=== PATIENT | female | born 1955 | race Caucasian/White ===

== ENCOUNTER 2017-02-17 08:00 | Observation (INO) | payer MEDICARE, OTHER ==
[2017-02-16 09:49] VITALS: BMI 23.0
[2017-02-17 08:42] LABS: Hematocrit 47.4 % (36.0-47.0); Mean Platelet Volume 6.4 fL (7.4-10.4); Red Blood Cell (RBC) Count 5.17 mill/uL (4.20-5.40); White Blood Cell (WBC) Count 5.5 thou/uL (4.8-10.8)
[2017-02-17 08:58] LABS: PTT 25.8 SEC (22.9-36.1)
[2017-02-17 09:15] LABS: Anion Gap 14 mmol/L (10-20); BUN (Urea Nitrogen) 21 mg/dL (9.8-20.1); Calc. Creatinine Clearance 71 mL/min (70-130); Carbon Dioxide 22 mmol/L (23-31); Chloride 104 mmol/L (98-107); Estimated GFR-MDRD 75
[2017-02-17] MEDS ORDERED: Propofol 1,000 MG/100 ML VIAL IV ONE (09:40)
[2017-02-17] MEDS ORDERED: Midazolam HCl 2 mg/2 ml Vial ONE (09:43)
[2017-02-17] MEDS ORDERED: Meperidine HCl/PF 25 MG/ML VIAL ONE ×2 (09:43→11:14)
[2017-02-17] MEDS ORDERED: Propofol 200 MG/20 ML VIAL ONE (09:51)
[2017-02-17] MEDS ORDERED: Isoproterenol 0.2 MG/1 ML AMP ONE (10:36)
[2017-02-17] MEDS ORDERED: Heparin 10,000 UNITS/1 ML VIAL ONE ×3 (10:57→10:58)
[2017-02-17] MEDS ORDERED: Heparin 25,000 units/D5W 500 ML ONE (11:14)
[2017-02-17] MEDS ORDERED: Diprivan 0 ML ONE (11:58)
[2017-02-17] MEDS ORDERED: Propofol 500 MG/50 ML VIAL ONE (11:58)
[2017-02-17] MEDS ORDERED: Protamine Sulfate 50 MG/5 ML VIAL ONE (13:00)
[2017-02-17] MEDS ORDERED: Acetaminophen 325 MG TAB PO PRN (14:31)
[2017-02-17] MEDS ORDERED: Mag-Al 1200 mg/1200 mg/30 ML UDCUP PO PRN (14:31)
[2017-02-17] MEDS ORDERED: Bisacodyl 5 MG TAB PO PRN (14:31)
[2017-02-17] MEDS ORDERED: Bisacodyl 10 MG SUPP PR PRN (14:31)
[2017-02-17] MEDS ORDERED: Temazepam 15 MG CAP PO PRN (14:31)
[2017-02-17] MEDS ORDERED: Nitroglycerin 0.4 MG TAB (25 Tab Bottle) SL PRN (14:31)
[2017-02-17] MEDS ORDERED: Ondansetron HCl/PF 4 MG/2 ML Vial IVP PRN (14:31)
[2017-02-17] MEDS ORDERED: diphenhydrAMINE HCl 25 MG CAP PO PRN (14:31)
[2017-02-17] MEDS ORDERED: Silver Sulfadiazine 1% Cream 50 GM JAR TOP PRN (14:31)
[2017-02-17] MEDS ORDERED: traMADol HCl 50 MG TAB PO PRN (14:31)
[2017-02-17] MEDS ORDERED: HYDROcodone/Acetaminophen 5/325 mg Tablet PO PRN (19:08)
[2017-02-17] MEDS ORDERED: Atorvastatin Calcium 10 MG TAB PO SCH (21:00)
--- NOTE | 2017-02-18 00:48 | CCL ---
DATE OF PROCEDURE: 02/17/2017 ELECTROPHYSIOLOGY STUDY AND RADIOFREQUENCY ABLATION REPORT REFERRING PHYSICIAN: Nancy Leija M.D. Mrs. Mercado is a 61-year-old woman with history of bone cancer in the right hip. She developed rapid tachyarrhythmia episodes at 130 beats per minute on a Holter monitor in 01/2017. EKG at baseline suggestive of pre-excitation. She is here for EP study and ablation procedure. PROCEDURE: The patient has received deep sedation by anesthesia specialist. Both femoral areas were prepped, draped, and anesthetized using subcutaneous lidocaine. The left femoral vein was accessed under ultrasound guidance, and a 5-, 6-, and 8-Bruneian sheaths were introduced. Through these, an octapolar catheter was advanced to the RV, His bundle, and right atrial position. A decapolar catheter was advanced to a CS position. Comprehensive EP study was performed from these locations with pacing and mapping and recording in each locale was performed. Following findings were found. The baseline cycle length was 658 milliseconds, TN 138, QRS was 84, QT 354, AH 69, HV initially was about 8-28. Intermittent pre-excitation was noted on some beats. The AV Wenckebach cycle length was 280 milliseconds, retrograde Wenckebach cycle length was 300 milliseconds. Of note, concentric retrograde activation was seen. AV eliane ERP was 600/200 with accessory pathway ERP was measured about 600/300. No dual AV eliane physiology was present. Following that, burst atrial and ventricular pacing maneuvers were performed. Double extra stimuli were performed, but no sustained SVT was induced on and off Isuprel, which is also introduced. On the other hand, with Isuprel, the accessory ERP was improved to 220 milliseconds. Hence, the improved antegrade accessory pathway conduction was present. We decided to proceed with ablation. The earliest ventricular activation was registered in the distal CS leads, transseptal puncture was performed with the help of intracardiac echo catheter monitoring. This was placed through an 11-Bruneian sheath from the left side. The right femoral vein was also accessed carefully, has a history of surgery in that area with ultrasound guidance as well. A SL1 sheath was used along with the Riley transseptal needle to access the left atrium. Following that heparin was given bolus and drip maintaining the ACT over 350. A Thermo[employer]ucid[employer] SF Smart Touch bi- directional catheter was introduced. The repeat mapping with antegrade pacing was performed with delineating the earliest ventricular activation during pre- excitation in the left anterolateral area. Also, the accessory pathway potential was seeked out. Following that, with the help of this catheter radiofrequency ablation was delivered, total of 8 leal were delivered. On the final burn the pre-excitation disappeared on the first, second of the application and no recurrence of the accessory pathway conduction was noted after this. With Isuprel, no preexcitation and mo tachyarrhythmia induced with repeated burst atrial and ventricular pacing maneuvers. LV pacing was also performed ruling out the presence of concealed left-sided accessory pathway. CONCLUSION: 1. 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 2. Improving accessory pathway conduction, especially on Isuprel with ERP in the 220 range. 3. No true supraventricular tachycardia or atrial fibrillation was induced. 4. Successful ablation of anterogradely conducting accessory pathway performed after transseptal puncture. 5. No evidence of pericardial effusion based on ICE images and fluoro images at the end of the case. PLAN: Remove sheaths, routine postoperative care. POS: [facility]
--- NOTE | 2017-02-18 06:18 | EKG ---
Test Reason : POST ABLATION Blood Pressure : / mmHG Vent. Rate : 070 BPM Atrial Rate : 070 BPM P-R Int : 152 ms QRS Dur : 086 ms QT Int : 394 ms P-R-T Axes : 046 000 064 degrees QTc Int : 425 ms Normal sinus rhythm Normal ECG When compared with ECG of 17-FEB-2017 08:58, (Unconfirmed) Fusion complexes are no longer Present Confirmed by HU SANTIAGO ([id number]) on 02/18/2017 6:18:13 AM Referred By: CAITLIN Confirmed By:HU SANTIAGO
--- NOTE | 2017-02-18 06:26 | EKG ---
Test Reason : PREOP Blood Pressure : / mmHG Vent. Rate : 079 BPM Atrial Rate : 079 BPM P-R Int : 142 ms QRS Dur : 076 ms QT Int : 372 ms P-R-T Axes : 037 -06 074 degrees QTc Int : 426 ms Sinus rhythm with Fusion complexes Voltage criteria for left ventricular hypertrophy Abnormal ECG When compared with ECG of 09-JUL-2016 19:13, Fusion complexes are now Present QT has shortened Confirmed by HU SANTIAGO ([id number]) on 02/18/2017 6:25:41 AM Referred By: CAITLIN Confirmed By:HU SANTIAGO
[2017-02-18] MEDS ORDERED: Calcium Carbonate + Vit D 1 TAB PO SCH (09:00)
[2017-02-18] MEDS ORDERED: Aspirin 81 mg Enteric Coated Tablet PO SCH (09:00)
[2017-02-18 11:38] VITALS: BP 117/67; TEMP 98.9
--- NOTE | 2017-02-18 23:36 | DIS ---
DATE OF SERVICE: 02/18/2017 ADMISSION DIAGNOSES: 1. History of preexcitation of baseline EKG. 2. History of supraventricular tachycardia by telemetry. 3. Status post EP study demonstrating a left lateral accessory pathway which was ablated on admissi on day 02/17/2017. HOSPITAL COURSE: Ms. Mercado was admitted after her elective EP study ablation procedure which inclu ded a left atrial access and ablation of her left anterolateral accessory pathway. She remained sta ble overnight and her EKG showed narrow QRS in subsequent day and no evidence of preexcitation. No AVRT is documented, mild sinus tachycardia with ambulation is seen. Her groin sites are without alley ction. OBJECTIVE DATA: VITAL SIGNS: Blood pressure 117/67, heart rate 81, respiratory rate 16, temperature 98.9 degrees Fa hrenheit. GENERAL: This is alert and oriented woman, in no apparent distress. NECK: Supple. Jugular veins not distended. CHEST: Coarse, without crackles. CARDIOVASCULAR: Heart sounds are regular with rate and rhythm. No murmur or gallop. ABDOMEN: Benign. Bowel sounds positive. EXTREMITIES: Lower extremities without edema, clubbing, or cyanosis. Groin sites are without react ion. DATABASE: EKG is reviewed, revealed normal rhythm. Telemetry strips reveal evidence of sinus tachy cardia with ambulation up to 130 beats per minute. ASSESSMENT AND PLAN: Ms. Mercado is a pleasant 61-year-old woman with prior history of preexcitation on baseline EKG correlating to a left anterolateral accessory pathway. She was successfully ablate d. She still has some sinus tachycardia but no evidence of preexcitation on ambulation mostly. As I discussed with her, we will continue to observe for off the verapamil but if tachy-palpitations seems to get worse, we might consider resuming verapamil or digoxin. Currently, no evidence of pre excitation left. Routine follow up as requested.
--- NOTE | 2017-02-20 17:49 | EKG ---
Test Reason : Blood Pressure : / mmHG Vent. Rate : 081 BPM Atrial Rate : 081 BPM P-R Int : 144 ms QRS Dur : 082 ms QT Int : 390 ms P-R-T Axes : 049 005 070 degrees QTc Int : 453 ms Normal sinus rhythm Normal ECG When compared with ECG of 17-FEB-2017 13:27, No significant change was found Confirmed by HU SANTIAGO ([id number]) on 02/20/2017 5:48:50 PM Referred By: CAITLIN Confirmed By:HU SANTIAGO
== END 2017-02-18 14:11 | disposition home or self-care (01) ==
LOC: CCL 08:00 → 2SW 13:40
PROVIDERS: ADMIT Internal Medicine Cardiovascular Disease; ATTEND Internal Medicine Cardiovascular Disease
DX: I45.6 Pre-excitation syndrome (principal); I25.10 Atherosclerotic heart disease of native coronary artery without angina pectoris; I10 Essential (primary) hypertension; E78.5 Hyperlipidemia, unspecified; Z79.82 Long term (current) use of aspirin; Z79.899 Other long term (current) drug therapy; Z88.8 Allergy status to other drugs, medicaments and biological substances; Z95.1 Presence of aortocoronary bypass graft; Z85.830 Personal history of malignant neoplasm of bone
CPT/HCPCS: 76942; 80048; 85027; 85347 ×2; 85610; 85730; 93005 ×2; 93462; 93613; 93623; 93653; 93662; C1730 ×3; C1759; 93010; A4216; G0378; J1644; J2175; J2250; J2704; J2720

== ENCOUNTER 2018-10-22 19:17 | Observation (INO) | payer MEDICARE, OTHER ==
[2018-10-22] MEDS ORDERED: Nitroglycerin 0.4 MG TAB 1 EACH ONE (19:38)
[2018-10-22] MEDS ORDERED: Aspirin Chewable 81 MG TAB ONE (19:38)
[2018-10-22 19:44] LABS: #Basophils 0.1 thou/uL (0.0-0.2); #Eosinphils 0.2 thou/uL (0.0-0.7); #Lymphocytes 2.9 thou/uL (1.20-3.40); #Monocytes 0.6 thou/uL (0.11-0.59); #Neutrophils 3.4 thou/uL (1.40-6.50); %Basophils 0.8 % (0.0-1.0); %Eosinophils 2.5 % (0.0-10.0); %Lymphocytes 40.8 % (21.0-51.0); %Monocytes 8.5 % (0.0-10.0); %Neutrophils 47.5 % (42.0-75.0); Hemoglobin 15.2 g/dL (12.0-16.0); Mean Corpuscular HGB CONC 32.7 g/dL (32.0-36.0); Mean Corpuscular Volume 91.7 fL (78.0-98.0); Mean Platelet Volume 7.1 fL (7.4-10.4); Platelet Count 273 thou/uL (130-400); Red Blood Cell (RBC) Count 5.06 mill/uL (4.20-5.40); White Blood Cell (WBC) Count 7.1 thou/uL (4.8-10.8)
--- NOTE | 2018-10-22 19:47 | RAD ---
RADIOGRAPH CHEST 1 VIEW: DATE: 10/22/2018 HISTORY: 63-year-old female with chest pain FINDINGS: There are no airspace densities, pulmonary edema, pneumothorax, or cardiomegaly. The lateral costophr enic angles are sharp. Signs of previous CABG. IMPRESSION: No acute cardiopulmonary findings.
[2018-10-22 20:02] LABS: ALT (SGPT) 25 U/L (8-55); AST (SGOT) 26 U/L (5-34); Albumin 4.5 g/dL (3.4-4.8); Alkaline Phosphatase 71 U/L (40-150); Anion Gap 16 mmol/L (10-20); BUN (Urea Nitrogen) 17 mg/dL (9.8-20.1); Bilirubin, Total 0.2 mg/dL (0.2-1.2); Calc. Creatinine Clearance 0 mL/min (70-130); Calcium 11.2 mg/dL (7.8-10.44); Carbon Dioxide 25 mmol/L (23-31); Chloride 103 mmol/L (98-107); Estimated GFR-MDRD 69; Globulin 3.4 g/dL (2.4-3.5); Glucose 91 mg/dL (80-115); Potassium 4.3 mmol/L (3.5-5.1); Protein, Total 7.9 g/dL (6.0-8.3); Sodium 140 mmol/L (136-145)
[2018-10-22] MEDS ORDERED: Nitroglycerin 2% Ointment 1 INCH/1 GM Packet ONE (20:09)
[2018-10-22] MEDS ORDERED: Morphine 4 MG/ML VIAL ONE (21:16)
[2018-10-22 23:00] LABS: Troponin I Less than 0.010 ng/mL (< 0.028)
[2018-10-22] MEDS ORDERED: Ondansetron ODT 4 MG TAB SL PRN (23:52)
[2018-10-22] MEDS ORDERED: Sodium Chloride 0.9% 1,000 ML IV SCH (23:52)
[2018-10-22] MEDS ORDERED: Ondansetron PF 4 MG/2 ML Vial IVP PRN (23:52)
[2018-10-22] MEDS ORDERED: Acetaminophen 325 MG TAB PO PRN (23:52)
[2018-10-23 00:12] VITALS: BMI 20.8
[2018-10-23] MEDS ORDERED: Ondansetron PF 4 MG/2 ML Vial IVP PRN (00:46)
[2018-10-23] MEDS ORDERED: Acetaminophen 325 MG TAB PO PRN (00:47)
[2018-10-23] MEDS ORDERED: Mag-Al 1200 mg/1200 mg/30 ML UDCUP PO PRN (00:52)
[2018-10-23] MEDS ORDERED: Pantoprazole 40 MG VIAL IVP SCH (01:00)
[2018-10-23] MEDS ORDERED: Enoxaparin Sodium 40 MG/0.4 ML SYRINGE SC SCH ×2 (01:00→21:00)
[2018-10-23] MEDS ORDERED: Lidocaine 2% Viscous Solution 10 ML, Aluminum & Magnesium Hydroxide 30 ML SSW SCH (01:00)
[2018-10-23] MEDS: Nitroglycerin 2% Ointment 1 INCH/1 GM Packet TOP SCH ×4 (01:30→16:46)
[2018-10-23] MEDS: Sodium Chloride 0.9% (PF) 10 ML VIAL FS PRN (01:32)
[2018-10-23] MEDS: Gabapentin 300 MG CAP PO PRN ×2 (01:40→16:46)
[2018-10-23 02:34] LABS: Troponin I Less than 0.010 ng/mL (< 0.028)
[2018-10-23] MEDS: HYDROcodone/Acetaminophen 7.5/325 mg Tablet PO PRN ×3 (03:00→17:04)
[2018-10-23] MEDS: Ondansetron ODT 4 MG TAB PO PRN ×3 (03:02→16:46)
[2018-10-23] MEDS: Calcium Carbonate + Vit D 1 TAB PO SCH (08:06)
[2018-10-23] MEDS: Multivit, Therapeutic 1 TAB PO SCH (08:06)
[2018-10-23] MEDS: Aspirin 81 mg Enteric Coated Tablet PO SCH (08:06)
[2018-10-23] MEDS ORDERED: Communication Order-Pharmacy FS SCH (10:00)
[2018-10-23] MEDS ORDERED: Iopamidol 370 76% 100 ML VIAL ONE (10:28)
--- NOTE | 2018-10-23 14:20 | HP ---
HISTORY OF PRESENT ILLNESS: The patient is a 63-year-old white female with a known history of atherosclerotic coronary artery disease. She has been noted chest pain now for approximately 3 to 4 weeks, which has been getting worse while she was lying. She reports she started taking some Plavix from her , which made her pain feel better. She noticed some nausea. No vomiting. Noted left-sided chest pain associated with some shortness of breath. Been noticed it now for three weeks, which has become progressively worse. There has been no fever reported. She was seen and evaluated in emergency room. Had an evaluation included a D-dimer, which was less than 0.27. All cardiac enzymes are negative. She is still complaining of left-sided chest pain. The patient has a known history of a previous cancer involving her left hip, makes it difficult for her to walk. She has not noted any fever associated with this. No trauma has been noted. She is currently still complaining of left-sided chest pain. After being seen and evaluated in the emergency room with negative troponin, she has now been admitted for further evaluation. As noted, she has a previous history of coronary artery bypass graft two years ago as well as cardiac ablation following her cardiac bypass graft. She has a history of previous osteosarcoma of the right hip making it difficult for her to be to walk. ALLERGIES: SHE IS ALLERGIC TO PREGABALIN. CURRENT MEDICATIONS: 1. Gabapentin. 2. Aspirin. 3. She is intolerant to most statins. PAST SURGICAL HISTORY: Positive as above for hysterectomy, coronary artery bypass graft, complicated surgery involving the right hip due to osteosarcoma, cardiac ablation. PAST MEDICAL HISTORY: Negative for diabetes, thyroid disease, and hypertension. SOCIAL AND PERSONAL HISTORY: She is . She does not smoke. Drinks alcohol very infrequently. PHYSICAL EXAMINATION: VITAL SIGNS: Temperature 97.6, pulse 66, respirations 16, O2 saturations 96%, and BP 103/60. GENERAL: She is alert and active, in no acute distress. HEENT: Unremarkable. NECK: Supple. Full range of motion. No masses. LUNGS: Clear. HEART: Reveals a regular rate and rhythm. No murmurs, gallops, or rubs. ABDOMEN: Soft and nontender. Bowel sounds are present and active. There is no hepatosplenomegaly noted. No signs of any rebound or guarding. LABORATORY DATA: White blood count 7.1, hemoglobin 15.2, and hematocrit 46.4. Chemistry; sodium 140, potassium 4.3, chloride 103, CO2 of 25, BUN 17, and creatinine 0.3. Troponins x3 are negative. Chest x-ray is clear. D-dimer is less than 0.7. IMPRESSION: This is a 63-year-old female with known history of coronary artery disease status post coronary artery bypass graft, who now presents with left-sided chest pain, appeared to be fairly atypical for cardiac disease; however, with previous cardiac diseases, could not be ruled out at this time. PLAN: Due to the difficulty of her walking on a stress test machine, she preferred to be taking straight to the cardiac airport maintenance laborer. We will discuss this with her recycling assistant. At this time, she will remain n.p.o. Job ID: [id number]
[2018-10-23] MEDS ORDERED: Lidocaine 1% (PF) 30 ML VIAL ONE (14:26)
--- NOTE | 2018-10-23 14:57 | CON ---
DATE OF CONSULTATION: 10/23/2018 INDICATION FOR CONSULTATION: This is a very pleasant 63-year-old female who has a history of known coronary artery disease, who underwent a cardiac catheterization in 2017. Despite having a normal stress test, she was found to have a 50% to 60% left main stenosis, she had 95% left anterior descending artery stenosis, 95% left circumflex, and 75% right coronary stenosis. She underwent bypass surgery x3 with a PIERCE to the left anterior descending artery, which was felt to be a 1.5-mm vessel. She also had saphenous vein graft to the obtuse marginal branch of left circumflex as well as the right coronary artery. She had been in [place] recently about 3 weeks ago and on her way back home on a flight, she noticed that she started having some left anterior chest discomfort, radiating to the shoulder area. This pain has been ongoing for about 3 weeks now, and it has been constant pain, and I think it is better, sometimes worse, but still remains there. She presented to the emergency room last night. The pain continued to worsen. She has also had some occasional shortness of breath and dyspnea on exertion. She complains of increased fatigue. She says this pain is somewhat similar to what she had prior to undergoing her bypass surgery. She has also had some mild nausea associated with chest tightness and some left arm numbness also at times. The cardiac enzymes are negative. EKG is unremarkable. Given her history of coronary artery disease and negative stress test in the past, I would suggest that she will undergo a repeat cardiac catheterization to evaluate the coronary status. She has been not able to take medications. We have placed her on beta blockers which she does not take and make her feel too bad and also she is not taking statins and they cause her increased pain. She has had a history of sarcoma of the right hip and has had multiple problems with surgeries and hip pain after that and contributes some of the increased pain due to the statins. The only medication that she was actually taking prior to this admission was I believe an aspirin 81 mg a day. Her blood pressure has also been elevated at home. Later, the cholesterol level has been elevated uncertain about her blood pressure when she came to the emergency room, apparently just it was elevated, but now the blood pressure remained stable. I saw her back in the office last I believe in January; at which time, her blood pressure was 122/64. She has not had a blood pressure problem, but her cholesterol level has been elevated. PAST MEDICAL HISTORY: Significant for coronary artery disease, bypass surgery. She has a history of sarcoma of the right hip for which she has undergone a surgical hemipelvectomy. She has hypercholesterolemia and diverticulosis. She has had bladder infections. She has had back surgeries. She has had oophorectomy. SOCIAL HISTORY: She is . She has 4 children. No heart disease. No alcohol or tobacco abuse. FAMILY HISTORY: She had a brother with myocardial infarction in his 40s. MEDICATIONS: As noted, she only takes 81 mg of aspirin a day. ALLERGIES: SHE STATES SHE IS ALLERGIC TO LYRICA. SHE IS INTOLERANT TO BETA BLOCKERS WELL STEFFANIE INHIBITORS. REVIEW OF SYSTEMS: A 12-point review of systems is unremarkable except that she wears glasses. She has had some chronic right lower extremity edema after surgery for the sarcoma. She complains of chest pain, occasional shortness of breath, and generalized fatigue. PHYSICAL EXAMINATION: GENERAL: Reveals a very pleasant, well-developed, thin female. VITAL SIGNS: Blood pressure is 104/55, heart rate is in the 50s to 60s and shows sinus rhythm, respiratory rate is about 16 beats per minute, she is afebrile, and oxygen saturation is 97%. HEENT: Shows head to be normocephalic and atraumatic. Carotid pulses are present. There were no bruits noted. CHEST: Clear to auscultation. There were no rales, rhonchi, or wheezing. CARDIOVASCULAR: Reveals a regular rate and rhythm. Normal S1, S2. There was no S3 or S4. There were no significant murmurs, heaves, thrills, bruits, or rubs. She had a well-healed midline surgical incision after median sternotomy. ABDOMEN: Soft and nontender. Positive bowel sounds are present. She had well-healed surgical incisions after her right hemipelvectomy. EXTREMITIES: Show some right lower extremity edema. Pulses are present. NEUROLOGIC: She appears to be intact. SKIN: Warm and dry. LABORATORY DATA: Show troponin I to be negative. Her D-dimer is less than 0.27. Her sodium is 140, potassium is 4.3, and creatinine is 0.83. Hemoglobin is 15.2 and WBC of 7.1. Her EKG is normal sinus rhythm with no acute changes. IMPRESSION: Ongoing continued chest pain in a middle-aged female who underwent bypass surgery approximately 2 years ago, who at that time had a negative stress test, but continued to have chest discomfort, had a strong family history of coronary artery disease in her brother and also had hypercholesterolemia, was advised to undergo cardiac catheterization at that time and was surprisingly found to have severe 3-vessel coronary artery disease with left main stenosis of 50% to 60%. She underwent a bypass that has been doing well since that time, but again she has not been taking her medications due to intolerance to the medications. I do not have a recent cholesterol level, but accordingly in the past, her cholesterol level has been elevated. Her LDL in August of 2015 was 163 with HDL of 45, and triglycerides of 195. IMPRESSION: 1. Possible progression of coronary artery disease due to inability to take the medications as prescribed. In her case, I believe the best option would be to proceed with cardiac catheterization to evaluate the coronary artery status and also to evaluate the saphenous vein graft as well as the left internal mammary artery graft to determine whether or not she has had progression of disease or whether she has had problems with the graft. We will plan for cardiac catheterization later today. At this time, she appears to be relatively stable, but continues to have some discomfort. 2. History of hypercholesterolemia. Suggests that she is to try to start taking some type of injectable PSK9 inhibitors, and this will hopefully lower the LDL level. She can inject herself and hopefully, this will alleviate some of the LDL problems. We will try to start her on Vascepa to see whether or not she can tolerate this medication. This actually has been shown to decrease the risk of further cardiac events. We will continue her aspirin. We may need to start Ranexa based on the findings of the cardiac catheterization. Job ID: [id number]
[2018-10-23] MEDS ORDERED: Midazolam HCl 2 mg/2 ml Vial ONE (15:12)
--- NOTE | 2018-10-23 16:04 | PDOC.CTH ---
Cardiology Progress Note - Subjective Pt. s/p cardiac cath. Grafts patent. Prox. LAD 90% priuor to small diag. This may be the likely culprit vessel. Less than 2.0 mm. Not a good vessel for intervention. - Objective Vital Signs Temp Pulse Resp BP Pulse Ox 10/23/18 11:46 98.2 F 63 22 H 130/61 93 L 10/23/18 07:18 97.7 F 54 L 16 104/55 L 97 Weight 117 lb 8 oz 10/22/18 10/23/18 10/24/18 06:59 06:59 06:59 Intake Total 460 Output Total 200 Balance 260 - Physical Examination General/Neuro: alert & oriented x3 Neck: no JVD present Lungs: CTA Heart: RRR Abdomen: soft - Labs Result Diagrams: 10/22/18 19:31 10/22/18 19:31 Troponin/CKMB Troponin I Less than 0.010 ng/mL (< 0.028) 10/23/18 01:23 - Assessment/Plan 1.CAD: grafts patent. Medical therapy. The small diag is the liely culprit causing chest pain if the etiology is cardiac. I suggest we start Brilinta or plavix, Vascepa, and Praluent or other PCSK9 inhibitor..continue ASA. 2. s/p CABG: bypass grafts and the PIERCE are patent. 3. Dyslipidemia with significant elevation of LDL.
[2018-10-23] MEDS ORDERED: Sodium Chloride 0.9% 200 ML IV PRN (16:14)
[2018-10-23] MEDS ORDERED: Nitroglycerin 0.4 MG TAB (25 Tab Bottle) SL PRN (16:14)
[2018-10-23] MEDS ORDERED: Acetaminophen/Codeine 30-300mg Tablet PO PRN ×2 (16:14)
[2018-10-24] MEDS: Nitroglycerin 2% Ointment 1 INCH/1 GM Packet TOP SCH ×3 (02:15→13:09)
[2018-10-24] MEDS ORDERED: Pantoprazole 40 MG VIAL IVP SCH (09:00)
[2018-10-24] MEDS: Aspirin 81 mg Enteric Coated Tablet PO SCH (09:23)
[2018-10-24] MEDS: Multivit, Therapeutic 1 TAB PO SCH (09:23)
[2018-10-24] MEDS: HYDROcodone/Acetaminophen 7.5/325 mg Tablet PO PRN (09:23)
[2018-10-24] MEDS: Calcium Carbonate + Vit D 1 TAB PO SCH (09:23)
[2018-10-24] MEDS: Sodium Chloride 0.9% (PF) 10 ML VIAL FS PRN (09:25)
--- NOTE | 2018-10-24 09:39 | CT ---
CT CHEST WITH CONTRAST: Multiple axial tomograms were obtained through the chest with IV enhancement. INDICATION: Chest pain. History of sarcoma right hip. COMPARISON: Comparison is made to a CT chest 07/07/2016. FINDINGS: The lung ross are well aerated. There is no evidence of inflammatory infiltrate. No effusion. A tiny 2-3 mm nodule in the peripheral right mid lung is stable from prior exam. There is a mild api jonathan pleural thickening and mild calcified plaque in the left apex, stable from prior exam. Mediastin um is unremarkable. No adenopathy. No evidence of axillary adenopathy. Images through the upper ab domen unremarkable. Osseous structures are unremarkable. IMPRESSION: No acute process. POS: [facility]
--- NOTE | 2018-10-24 11:37 | PRG ---
DATE OF SERVICE: 10/24/2018 SUBJECTIVE: The patient underwent cardiac cath yesterday. It did reveal some atherosclerotic coronary artery disease changes, possibly as a source of her pain. present. She is still complaining of some pain. She is now worried about possible metastatic disease due to history of previous history of sarcoma. PHYSICAL EXAMINATION: VITAL SIGNS: Temperature 97.9, BP 99/55. LUNGS: Clear. HEART: Reveals no murmur. ABDOMEN: Soft and nontender. Bowel sounds are present and active. IMPRESSION: 1. Atherosclerotic coronary artery disease. 2. Previous history of osteosarcoma of the hip. PLAN: We will rule out all sources of chest pain by getting CT scan of the chest today. Further treatment and recommendations regarding her Cardiology process will be by my Cardiology. She possibly could be discharged later today depending on Cardiology. Job ID: [id number]
[2018-10-24 12:04] VITALS: BP 105/59; TEMP 98.2
--- NOTE | 2018-10-24 13:01 | PDOC.CTH ---
Cardiology Progress Note - Subjective The pt seen and examined. No overnight events. She complains of intermittent tightness like pain to Lt upper chest. - Objective Vital Signs Temp Pulse Resp BP BP Pulse Ox 10/24/18 11:53 98.2 F 72 14 105/59 L 95 10/24/18 08:00 98.8 F 62 16 120/59 L 97 10/24/18 04:50 71 16 106/54 L 97 10/24/18 04:00 97.9 F 71 16 99/55 L 93 L Weight 121 lb 10/23/18 10/24/18 10/25/18 06:59 06:59 06:59 Intake Total 460 1190 250 Output Total 200 1550 Balance 260 -360 250 - Physical Examination General/Neuro: alert & oriented x3 Neck: no JVD present Lungs: CTA Heart: RRR Abdomen: soft - Telemetry Telemetry Rhythm: SR - Labs Result Diagrams: 10/22/18 19:31 10/22/18 19:31 Troponin/CKMB Troponin I Less than 0.010 ng/mL (< 0.028) 10/23/18 01:23 - Assessment/Plan 1.CAD: grafts patent. Medical therapy. The small diag is the liely culprit causing chest pain if the etiology is cardiac. Will start Brilinta 90mg BID and Ranexa 500mg BID; continue ASA. 2. s/p CABG: bypass grafts and the PIERCE are patent. 3. Dyslipidemia with significant elevation of LDL. Repatha sample will given to the pt at Dr Leija' office today. 4. hx of lung cancer MAR reviewed * From Cardiac standpoint, the pt is stable to d/c home. * The prescription of Repatha and Vascepa will be sent to her pharmacy from Dr Leija' office. Review of Systems - Review of Systems Constitutional: reports: no symptoms reported EENTM: reports: no symptoms reported Cardiac (ROS): reports: see HPI ABD/GI: reports: no symptoms reported : reports: no symptoms reported Musculoskeletal: reports: no symptoms reported
[2018-10-24] MEDS ORDERED: TICAGRELOR 90 MG TABLET PO SCH ×2 (13:30→21:00)
--- NOTE | 2018-10-27 21:04 | EKG ---
Test Reason : CHEST PAIN Blood Pressure : / mmHG Vent. Rate : 057 BPM Atrial Rate : 057 BPM P-R Int : 152 ms QRS Dur : 090 ms QT Int : 412 ms P-R-T Axes : 045 009 043 degrees QTc Int : 401 ms Sinus bradycardia Otherwise normal ECG When compared with ECG of 18-FEB-2017 07:10, QT has shortened Confirmed by Diandra GALVAN ([id number]) on 10/27/2018 9:04:36 PM Referred By: ORLANDO Confirmed By:Diandra GALVAN
== END 2018-10-24 14:24 | disposition home or self-care (01) ==
LOC: ERS 19:17 → ERHOLD 20:50 → 2SW 23:43
PROVIDERS: ADMIT Family Medicine; ATTEND Family Medicine
PROC: 4A023N7 Measurement of Cardiac Sampling and Pressure, Left Heart, Percutaneous Approach (ICD-10-PCS; principal; 2018-10-22)
PROC: B2001ZZ Plain Radiography of Single Coronary Artery using Low Osmolar Contrast (ICD-10-PCS; 2018-10-22)
DX: R07.9 Chest pain, unspecified (principal); R06.02 Shortness of breath; R11.0 Nausea; I25.10 Atherosclerotic heart disease of native coronary artery without angina pectoris; E78.00 Pure hypercholesterolemia, unspecified; Z95.1 Presence of aortocoronary bypass graft; Z88.8 Allergy status to other drugs, medicaments and biological substances; Z79.82 Long term (current) use of aspirin; Z79.899 Other long term (current) drug therapy
CPT/HCPCS: 71045; 71260; 80053; 84484 ×3; 85025; 85379; 93005 ×2; 93459; 94760; 96372; 96374; 96375; 96376; 99285; C1769; G0378 ×2; 36415; 93010; 99152; 99153; C9113; J1644; J1650; J2001; J2250; J2270; Q0162; Q9967

== ENCOUNTER 2019-08-21 13:41 | Outpatient (CLI) | payer MEDICARE ==
--- NOTE | 2019-08-21 14:37 | RAD ---
RIGHT KNEE FOUR VIEW: 08/21/19 HISTORY: Pain. COMPARISON: None. FINDINGS: There is a moderate joint effusion. No acute displaced fractures are appreciated. Patient has a known medial femoral condyle fracture although is not well defined on today's exam. IMPRESSION: Moderate joint effusion corresponding to the nondisplaced medial femoral condyle fracture which is kn own from prior MRI imaging and not well defined on today's radiograph. POS: [facility]
== END 2019-08-21 13:42 | disposition home or self-care (01) ==
LOC: SCSRAD 13:41
PROVIDERS: ATTEND Family Medicine
DX: S72.064A Nondisplaced articular fracture of head of right femur, initial encounter for closed fracture (principal); S72.434A Nondisplaced fracture of medial condyle of right femur, initial encounter for closed fracture

== ENCOUNTER 2020-06-02 14:18 | Outpatient (CLI) | payer MEDICARE ==
--- NOTE | 2020-06-02 15:15 | BD ---
EXAM: DEXA bone density examination HISTORY: 64-year-old postmenopausal female for screening COMPARISON: None FINDINGS: Left distal third forearm--bone mineral density0.522; T score -2.9 Total left distal forearm--bone mineral density 0.425; T score -2.8 Left femoral neck--bone mineral density0.575; T score -2.5 Total proximal left femur--bone mineral density 0.764; T score -1.5 IMPRESSION: Osteoporosis.
--- NOTE | 2020-06-02 15:24 | MMO ---
Bilateral MAMMO Bilat Screen [facility]. CLINICAL HISTORY: Patient is 64 years old and is seen for screening. The patient has the following family history of breast cancer: maternal grandmother; maternal aunt and 2 maternal uncles. The patient has a history of bone cancer at age 52. VIEWS: The views performed were: bilateral craniocaudal with tomosynthesis and bilateral mediolateral oblique with tomosynthesis. FILMS COMPARED: The present examination has been compared to prior imaging studies performed at [facility] on 10/02/2004 and 06/28/2011, and at [facility] on 01/21/2003. This study has been interpreted with the assistance of computer-aided detection. MAMMOGRAM FINDINGS: The breasts are heterogeneously dense, which could obscure a lesion on mammography. There are stable benign appearing calcifications seen in both breasts. There are no suspicious masses, suspicious calcifications, or new areas of architectural distortion. IMPRESSION: THERE IS NO MAMMOGRAPHIC EVIDENCE OF MALIGNANCY. A ROUTINE FOLLOW-UP MAMMOGRAM IN 1 YEAR IS RECOMMENDED. THE RESULTS OF THIS EXAM WERE SENT TO THE PATIENT. ACR BI-RADS Category 2 - Benign finding MAMMOGRAPHY NOTE: 1. A negative mammogram report should not delay a biopsy if a dominant of clinically suspicious mass is present. 2. Approximately 10% to 15% of breast cancers are not detected by mammography. 3. Adenosis and dense breasts may obscure an underlying neoplasm. Reported by: CECE CARNES MD Electonically Signed: [id number]
== END 2020-06-02 14:19 | disposition home or self-care (01) ==
LOC: BICMAMMO 14:18
PROVIDERS: ATTEND Family Medicine
DX: Z12.31 Encounter for screening mammogram for malignant neoplasm of breast (principal); Z80.3 Family history of malignant neoplasm of breast; Z85.830 Personal history of malignant neoplasm of bone; M81.0 Age-related osteoporosis without current pathological fracture
CPT/HCPCS: 77063; 77067; 77080

== ENCOUNTER 2021-01-01 19:38 | Observation (INO) | payer MEDICARE, OTHER ==
[~2021-01-01 19:38] MED LIST: Iopamidol-370 76% 500 ML 1 ML ONE
[2021-01-01 20:03] LABS: #Basophils 0.1 thou/uL (0.0-0.2); #Eosinphils 0.1 thou/uL (0.0-0.7); #Lymphocytes 2.9 thou/uL (1.20-3.40); #Monocytes 0.6 thou/uL (0.11-0.59); #Neutrophils 4.9 thou/uL (1.40-6.50); %Basophils 0.8 % (0.0-1.0); %Eosinophils 1.5 % (0.0-10.0); %Lymphocytes 33.4 % (21.0-51.0); %Monocytes 7.3 % (0.0-10.0); %Neutrophils 57.1 % (42.0-75.0); Hemoglobin 14.3 g/dL (12.0-16.0); Mean Corpuscular HGB CONC 35.2 g/dL (32.0-36.0); Mean Corpuscular Hemoglobin 31.3 pg (27.0-31.0); Mean Corpuscular Volume 89.1 fL (78.0-98.0); Mean Platelet Volume 6.7 fL (7.4-10.4); Platelet Count 277 thou/uL (130-400); RBC Distribution Width 11.5 % (11.5-14.5); Red Blood Cell (RBC) Count 4.56 mill/uL (4.20-5.40); White Blood Cell (WBC) Count 8.6 thou/uL (4.8-10.8)
[2021-01-01 20:27] LABS: ALT (SGPT) 20 U/L (8-55); AST (SGOT) 20 U/L (5-34); Albumin 4.4 g/dL (3.4-4.8); Alkaline Phosphatase 57 U/L (40-110); Anion Gap 13 mmol/L (10-20); BUN (Urea Nitrogen) 18 mg/dL (9.8-20.1); Bilirubin, Total 0.4 mg/dL (0.2-1.2); CK (CPK) 71 U/L (29-168); Calc. Creatinine Clearance 0 mL/min (70-130); Carbon Dioxide 26 mmol/L (23-31); Chloride 103 mmol/L (98-107); Globulin 3.6 g/dL (2.4-3.5); Glucose 115 mg/dL (80-115); Sodium 138 mmol/L (136-145)
[2021-01-01] MEDS ORDERED: Ondansetron PF 4 MG/2 ML Vial ONE (20:28)
[2021-01-01] MEDS ORDERED: Morphine 4 MG/ML VIAL ONE (20:30)
[2021-01-01] MEDS ORDERED: Nitroglycerin 2% Ointment 1 INCH/1 GM Packet ONE (20:32)
[2021-01-01] MEDS ORDERED: Aspirin Chewable 81 MG TAB ONE (20:32)
[2021-01-01] MEDS ORDERED: Fentanyl 100 MCG/2 ML VIAL ONE (23:06)
[2021-01-02 00:11] LABS: Troponin I Less than 0.010 ng/mL (< 0.028)
[2021-01-02] MEDS ORDERED: Ondansetron PF 4 MG/2 ML Vial IVP PRN (00:30)
[2021-01-02] MEDS ORDERED: Acetaminophen 325 MG TAB PO PRN (00:30)
[2021-01-02] MEDS ORDERED: Ondansetron ODT 4 MG TAB SL PRN (00:30)
[2021-01-02 00:49] VITALS: BMI 22.6
[2021-01-02] MEDS ORDERED: Gabapentin 300 MG CAP PO PRN (01:24)
[2021-01-02 03:00] LABS: Troponin I Less than 0.010 ng/mL (< 0.028)
[2021-01-02] MEDS ORDERED: Nitroglycerin 0.4 MG TAB (25 Tab Bottle) SL PRN (03:09)
[2021-01-02] MEDS ORDERED: Morphine 2 MG/ML VIAL SLOW IVP PRN (03:09)
[2021-01-02 04:55] LABS: #Eosinphils 0.2 thou/uL (0.0-0.7); #Lymphocytes 2.2 thou/uL (1.20-3.40); #Monocytes 0.5 thou/uL (0.11-0.59); #Neutrophils 2.4 thou/uL (1.40-6.50); %Basophils 0.9 % (0.0-1.0); %Eosinophils 3.6 % (0.0-10.0); %Monocytes 8.8 % (0.0-10.0); %Neutrophils 44.7 % (42.0-75.0); Hemoglobin 12.8 g/dL (12.0-16.0); Mean Corpuscular HGB CONC 34.3 g/dL (32.0-36.0); Mean Corpuscular Hemoglobin 30.9 pg (27.0-31.0); Mean Platelet Volume 7.1 fL (7.4-10.4); Platelet Count 250 thou/uL (130-400); RBC Distribution Width 11.5 % (11.5-14.5); Red Blood Cell (RBC) Count 4.16 mill/uL (4.20-5.40); White Blood Cell (WBC) Count 5.3 thou/uL (4.8-10.8)
[2021-01-02 05:15] LABS: Anion Gap 10 mmol/L (10-20); BUN (Urea Nitrogen) 14 mg/dL (9.8-20.1); Calc. Creatinine Clearance 69 mL/min (70-130); Carbon Dioxide 27 mmol/L (23-31); Chloride 108 mmol/L (98-107); Glucose 85 mg/dL (80-115); Sodium 140 mmol/L (136-145)
[2021-01-02 07:27] LABS: Cardiac Risk 3.6 (Less than 4.5)
[2021-01-02] MEDS ORDERED: Aspirin 81 mg Enteric Coated Tablet PO SCH (09:00)
[2021-01-02] MEDS ORDERED: Regadenoson 0.4 MG/5 ML SYRINGE ONE (09:40)
[2021-01-02 12:52] LABS: SARS-CoV-2 PCR by NAA DETECTED (NotDetected)
[2021-01-02 14:54] VITALS: BP 144/77; TEMP 98.4
== END 2021-01-02 14:10 | disposition home or self-care (01) ==
LOC: ERS 19:38 → 2SE 23:09
PROVIDERS: ADMIT Student in an Organized Health Care Education/Training Program; ATTEND Internal Medicine
DX: U07.1 COVID-19 (principal); R07.89 Other chest pain; M06.9 Rheumatoid arthritis, unspecified; E78.5 Hyperlipidemia, unspecified; I25.10 Atherosclerotic heart disease of native coronary artery without angina pectoris; I10 Essential (primary) hypertension; I08.8 Other rheumatic multiple valve diseases; Z85.830 Personal history of malignant neoplasm of bone; Z86.711 Personal history of pulmonary embolism; Z79.02 Long term (current) use of antithrombotics/antiplatelets; Z79.82 Long term (current) use of aspirin; Z79.899 Other long term (current) drug therapy; Z95.1 Presence of aortocoronary bypass graft
CPT/HCPCS: 71045; 71275; 78452; 80048; 80053; 80061; 82550; 84484 ×3; 85025 ×2; 85379; 93005; 93017; 93306; 96374; 96375; 99285; A9500; U0003; U0005; 36415; G0378; J2270; J2405; J2785; J3010; Q9967

== ENCOUNTER 2021-02-18 13:56 | Outpatient (CLI) | payer MEDICARE, OTHER | END 2021-02-18 13:57 | disposition home or self-care (01) | LOC: SCSRAD 13:56 | PROVIDERS: ATTEND Internal Medicine Rheumatology | DX: M05.79 Rheumatoid arthritis with rheumatoid factor of multiple sites without organ or systems involvement (principal); M25.571 Pain in right ankle and joints of right foot; M79.89 Other specified soft tissue disorders; Z85.830 Personal history of malignant neoplasm of bone ==

== ENCOUNTER 2022-02-09 11:10 | Outpatient (CLI) | payer MEDICARE, OTHER ==
[2022-02-09 14:49] LABS: #Eosinphils 0.1 thou/uL (0.0-0.7); #Monocytes 0.5 thou/uL (0.11-0.59); #Neutrophils 3.9 thou/uL (1.40-6.50); %Basophils 0.7 % (0.0-1.0); %Eosinophils 1.8 % (0.0-10.0); %Lymphocytes 30.7 % (21.0-51.0); %Monocytes 7.3 % (0.0-10.0); %Neutrophils 59.5 % (42.0-75.0); Mean Corpuscular HGB CONC 32.3 g/dL (32.0-36.0); Mean Corpuscular Hemoglobin 29.7 pg (27.0-31.0); Mean Platelet Volume 7.8 fL (7.4-10.4); Platelet Count 282 thou/uL (130-400); RBC Distribution Width 11.8 % (11.5-14.5); Red Blood Cell (RBC) Count 4.69 mill/uL (4.20-5.40); White Blood Cell (WBC) Count 6.6 thou/uL (4.8-10.8)
[2022-02-09 15:06] LABS: ALT (SGPT) 14 U/L (8-55); AST (SGOT) 20 U/L (5-34); Albumin 4.5 g/dL (3.4-4.8); Alkaline Phosphatase 54 U/L (40-110); Anion Gap 13 mmol/L (10-20); BUN (Urea Nitrogen) 14 mg/dL (9.8-20.1); Bilirubin, Total 0.2 mg/dL (0.2-1.2); Calc. Creatinine Clearance 0 mL/min (70-130); Calcium 9.4 mg/dL (7.8-10.44); Carbon Dioxide 26 mmol/L (23-31); Chloride 106 mmol/L (98-107); Estimated GFR 85; Globulin 2.8 g/dL (2.4-3.5); Glucose 90 mg/dL (80-115); Potassium 4.2 mmol/L (3.5-5.1); Protein, Total 7.3 g/dL (5.8-8.1); Sodium 141 mmol/L (136-145)
== END 2022-02-09 11:11 | disposition home or self-care (01) ==
LOC: SCSRAD 11:10
PROVIDERS: ATTEND Family Medicine
DX: R06.00 Dyspnea, unspecified (principal); R53.83 Other fatigue
CPT/HCPCS: 36415; 71046; 80053; 83880; 84443; 85025

== ENCOUNTER 2022-07-06 14:20 | Outpatient (CLI) | payer MEDICARE, OTHER | END 2022-07-06 14:21 | disposition home or self-care (01) | LOC: BICMAMMO 14:20 | PROVIDERS: ATTEND Family Medicine | DX: Z12.31 Encounter for screening mammogram for malignant neoplasm of breast (principal); Z80.3 Family history of malignant neoplasm of breast; Z85.830 Personal history of malignant neoplasm of bone | CPT/HCPCS: 77063; 77067 ==

== ENCOUNTER 2023-09-21 10:15 | Outpatient (CLI) | payer MEDICARE, OTHER | END 2023-09-21 10:16 | disposition home or self-care (01) | LOC: BICMRI 10:15 | PROVIDERS: ATTEND Family Medicine | DX: M47.26 Other spondylosis with radiculopathy, lumbar region (principal); Z98.890 Other specified postprocedural states | CPT/HCPCS: 72148 ==

== ENCOUNTER 2025-03-29 10:00 | Outpatient (CLI) | payer MEDICARE, OTHER | END 2025-03-29 10:01 | disposition home or self-care (01) | LOC: BICMAMMO 10:00 | PROVIDERS: ATTEND Family Medicine | DX: Z12.31 Encounter for screening mammogram for malignant neoplasm of breast (principal); Z78.0 Asymptomatic menopausal state; M85.89 Other specified disorders of bone density and structure, multiple sites; Z80.3 Family history of malignant neoplasm of breast; Z85.830 Personal history of malignant neoplasm of bone | CPT/HCPCS: 77063; 77067; 77080 ==